=== PATIENT | male | born 1955 ===

== ENCOUNTER 2018-09-09 14:08 | Emergency (ER) | payer SELFPAY ==
[2018-09-09 14:09] VITALS: BP 125/90
--- NOTE | 2018-09-09 14:16 | ER Report ---
History and Physical Time Seen By MD: 14:16 Hx. of Stated Complaint: [facility] CLEARANCE HPI/ROS CHIEF COMPLAINT: Medical clearance HISTORY OF PRESENT ILLNESS: Mr. Dunn is a pleasantly intoxicated 62-year-old male who is brought in by [place] [employer] for medical clearance. Patient states that approximately 5 beers today although police suspect more. He was found lying on someone's front yard and acting disorderly. The patient denies any pain he denies any trauma. He denies any past medical history or surgical history denies any allergies. History is difficult to obtain as he does appear intoxicated. Allergies: Coded Allergies: UNABLE TO OBTAIN (Unverified , 09/09/18) Past Medical/Surgical History Negative; the electronic medical record was also reviewed to obtain history but there are no prior patient contacts. Unable To Obtain Past Medical: Unable to Obtain/Update Constitutional Vital Sign - Last 24 Hours 09/09/18 14:09 Temp 97.6 Pulse 79 Resp 20 B/P (MAP) 125/90 Pulse Ox 92 O2 Delivery Room Air Physical Exam General Appearance: The patient is alert, has no immediate need for airway protection and no current signs of toxicity. [ ] Eyes: Pupils equal and round no injection. Positive for nystagmus horizontally on exam Respiratory: Chest is non tender, lungs are clear to auscultation. Cardiac: regular rate and rhythm [ ] Gastrointestinal: Abdomen is soft and non tender, no masses, bowel sounds normal. Musculoskeletal: Neck: Neck is supple and non tender. Extremities have full range of motion and are non tender. Skin: No rashes or lesions. Neuro: Slight Slurred speech but thought process is logical and goal-directed [ ] Medical Decision Making ED Course/Re-evaluation ED Course No evidence of trauma or other medical conditions every require further evaluation with disposition to the [place] [facility] Decision to Disposition Date: Sep 09, 2018 Decision to Disposition Time: 14:24 Depart Departure Latest Vital Signs Vital Signs Date Time Temp Pulse Resp B/P (MAP) Pulse Ox O2 Delivery O2 Flow Rate FiO2 09/09/18 14:09 97.6 79 20 125/90 92 Room Air Impression: Primary Impression: Intoxication Condition: Condition Unchanged Disposition: [facility] TO USP/CORRECTIONAL F Patient Instructions: Alcohol Intoxication (GEN) KARYN ARREOLA MD Sep 09, 2018 14:16
== END 2018-09-09 14:30 ==
LOC: ER 14:17
DX: F10.120 Alcohol abuse with intoxication, uncomplicated (principal)
CPT/HCPCS: 99281